=== PATIENT | female | born 1925 | race Caucasian/White ===

== ENCOUNTER 2016-10-19 14:39 | Inpatient (IN) ==
[2016-10-19] MEDS ORDERED: ULTRAM PO PRN (18:06)
[2016-10-19 19:28] LABS: INR 3.01; PROTIME 33.9 Seconds (9.2-11.7)
[2016-10-19 19:31] LABS: CALCIUM 9.4 mg/dL (8.8-10.2); POTASSIUM 4.7 mmol/L (3.5-5.1)
--- NOTE | 2016-10-19 19:36 | Diag Imaging Result Doc PS360 ---
EXAM: CHEST-2 VIEWS HISTORY: SOB TECHNIQUE: COMPARISON: 04/05/2014 FINDINGS: The heart is enlarged. There is a left-sided pacemaker. The lungs are well expanded. No pleural effusions. Mild central vascular prominence. No consolidation. IMPRESSION: Cardiomegaly with central vascular distention Electronically signed by Boubacar Son 10/19/2016 7:34 PM
[2016-10-19] MEDS: SODIUM CHLORIDE 0.9% INJ SCH (20:07)
[2016-10-19] MEDS: ZOSYN 3.375 GM in NS 50 ML IV SCH (20:07)
[2016-10-19] MEDS: PROTONIX IV SCH (20:07)
[2016-10-20] MEDS: ZOSYN 3.375 GM in NS 50 ML IV SCH ×4 (01:39→21:20)
--- NOTE | 2016-10-20 03:36 | HISTORY AND PHYSICAL ---
SUBJECTIVE: Complains of bilateral leg swelling, edema, ulcerations in the right leg outside with redness and swelling. HISTORY OF PRESENT ILLNESS: She is an 89-year-old, white female. Apparently was evaluated by asphalt raker in [place], Dr. Paul. She has a history of varicose veins with chronic venous stasis. Patient was on Coumadin. INR 3. She was given Demadex for the swelling. She was also placed, for the last 1 month, in Unna boot and wound care. Fails to improve. She has good pulses. Basically admitted to the hospital with ulcerations on the lateral side, first-degree, along with cellulitis. Since she failed with outpatient medical management, needs IV antibiotics and wound care consult. As a result, a hospital admission was warranted. 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 PAST SURGICAL HISTORY: Permanent pacemaker, gallbladder surgery, right hip replacement. MEDICATIONS: Allopurinol 100 daily, Coumadin 4 mg daily, vitamin D 5000 units daily, Demadex 100 mg and 50 mg as directed, Lipitor 10 mg daily, metoprolol 25 daily, Nexium 20 mg daily, Aldactone 25 two once daily, terazosin 2 mg daily. ALLERGIES: Statins and shellfish. SOCIAL HISTORY: Single. No children. Lives in [place]. No smoking. No alcohol. No drug abuse. Retired. FAMILY HISTORY: Father of lung cancer at 48. Mom at 49. HEALTH MAINTENANCE: Flu vaccine 2015, pneumococcal 2011, mammography 2011, colonoscopy by Dr. Edmonds. REVIEW OF SYSTEMS: HEENT: No headache. No vision problem. No earache. No sore throat. Neck: There is no goiter. No lymphadenopathy. No bruit. Cardiopulmonary: No chest pain, shortness of breath, PND, orthopnea. GI: No nausea, vomiting, abdominal pain. : No history of hesitancy, frequency, dysuria. Extremities: Swelling of feet of both legs. Right is worse than the left side. Ulcerations, redness on the right leg, mostly on the outside. No symptoms of claudications. Neurologic: No focal symptoms or weakness or seizures. PHYSICAL EXAMINATION: VITAL SIGNS: Low-grade fever. Vital signs are stable. Height of 5 feet 5 inches, 179 pounds. HEENT: Atraumatic, normocephalic. Pupils equal, reactive to light. TMs are normal. Nose and throat within normal limits. NECK: Supple. No lymphadenopathy. No goiter. CHEST: Bilateral air entry. HEART: Heart sounds are distant, irregular. ABDOMEN: Belly is soft, obese, nontender. Good bowel sounds. EXTREMITIES: There is 2+ pedal edema in both legs. Chronic venous stasis changes noted. NEUROLOGIC: No obvious neurological deficits. INVESTIGATIONS: PTT 33, INR 3. SMA 7: BUN 38, creatinine 1.8, A1c 6. Cardiac enzymes were normal. Chest x-ray, cardiomegaly with pacemaker. ASSESSMENT AND PLAN: 1. An 89-year-old, white female admitted to the hospital with cellulitis of the right leg associated with chronic venous stasis ulcer worsening. Plan is wound consult, intravenous Zosyn. 2. Atrial fibrillation, cardiomegaly, on Coumadin. Follow up on INR. 3. Reconcile home medicines. Discussed with the family. We will follow up. cc: Sage Lisa MD
[2016-10-20 04:38] LABS: ALLEN TEST YES; BE 5.8 mmoll (-3.0-3.0); BLOOD TYPE ARTERIAL; DRAW SITE R RADIAL; METHB 1.2 % (0.0-1.5); MODALITY ROOM AIR; O2(CT) 17.5 mL/dL (15.0-23.0); PCO2(98.6) 50 mmHg (35-45); PO2(98.6) 61 mmHg (60-100); SAMPLE BLOOD; SAO2 94.7 % (95.0-100.0); THB 13.6 g/dL (11.5-17.4); pH(98.6) 7.41 (7.35-7.45)
[2016-10-20 05:48] LABS: MANUAL DIFF NEEDED? NO
[2016-10-20 06:07] LABS: BASO% 0.5 % (0.0-0.8); EOS% 2.1 % (0.0-10.0); HEMATOCRIT 40.7 % (37.0-47.0); IMM GRAN# 0.02 X1000 (0.0-0.04); IMM GRAN% 0.2 % (0.0-0.5); LYMPH# 1.58 X1000 (1.2-3.4); LYMPH% 16.9 % (20.5-51.1); MCH 28.7 PG (27-31); MCHC 31.9 g/dL (33-37); MCV 89.8 FL (81-99); MONO# 1.33 X1000 (0.11-0.59); MONO% 14.2 % (1.7-9.3); MPV 12.5 FL (7.4-10.4); NEUT% 66.1 % (42.2-75.2); PLT 159 X1000 (130-400); RBC 4.53 XMIL (4.2-5.4)
[2016-10-20 06:16] LABS: INR 2.88; PROTIME 32.4 Seconds (9.2-11.7)
[2016-10-20 06:17] LABS: CALCIUM 8.9 mg/dL (8.8-10.2); POTASSIUM 4.1 mmol/L (3.5-5.1)
--- NOTE | 2016-10-20 07:13 | EKG Report ---
Test Performed on : 10/20/2016 06:50:05 AM Test Reason : cp Blood Pressure : / mmHG Vent. Rate : 114 BPM Atrial Rate : 228 BPM P-R Int : 000 ms QRS Dur : 086 ms QT Int : 332 ms P-R-T Axes : 000 -57 053 degrees QTc Int : 457 ms SInus with sinus arrhythmia. Left anterior fascicular block Inferior infarct , age undetermined Abnormal ECG When compared with ECG of 23-DEC-2011 06:17, Vent. rate has increased BY 40 BPM Confirmed by Tony Barney DO ([id number]) on 10/24/2016 12:16:11 PM
[2016-10-20] MEDS ORDERED: ULTRAM PO PRN (08:27)
--- NOTE | 2016-10-20 08:50 | PROGRESS NOTE ---
DATE: 10/20/2016 SUBJECTIVE: The patient is doing very well. Complains of headache. No focal symptoms. Right leg still swollen and red. Few impending ulcers on the lateral side. Rest of review of systems are normal. PHYSICAL EXAMINATION: Vital Signs: She is afebrile. Heart rate is 120. 186 pounds. HEENT: Within normal limits. Chest: Clear. Heart: Sounds are regular. Abdomen: Belly is soft, obese, nontender. Good bowel sounds. Extremities: 2+ edema. The right leg is more swollen with chronic venous stasis dermatitis changes noted. INVESTIGATIONS: CBC is normal. PT 32. INR 2.8. ABG: pH is 7.41, pCO2 of 50, pO2 of 61. SMA-7 is normal except BUN 34, creatinine 1.6. ProBNP 2100. Cardiac enzymes were normal. Chest x-ray: Cardiomegaly. EKG: Atrial flutter/atrial fibrillation. ASSESSMENT AND PLAN: 1. Chronic venous stasis dermatitis. Worsening on the right side with cellulitis and open sores, first-degree. Plan is wound consult, IV Zosyn. 2. Atrial fibrillation on Coumadin. INR is stable. We will restart warfarin in the morning. 3. History of gout. On Zyloprim. 4. Hyperlipidemia. On Lipitor. 5. Chronic congestive heart failure. Under the care of Dr. Petersen. On metoprolol, Aldactone, Demadex. Continue on present medical therapy. LEVEL OF DOCUMENTATION: 25 minutes. cc: Sage Lisa MD
[2016-10-20] MEDS ORDERED: NEXIUM PO SCH (09:00)
[2016-10-20] MEDS ORDERED: TOPROL XL PO SCH (09:00)
[2016-10-20] MEDS ORDERED: HYTRIN PO SCH (09:00)
[2016-10-20] MEDS: ZYLOPRIM PO SCH (09:36)
[2016-10-20] MEDS: ALDACTONE PO SCH ×2 (09:36→21:20)
[2016-10-20] MEDS: VITAMIN D PO SCH (09:36)
[2016-10-20] MEDS: PROTONIX IV SCH (18:53)
[2016-10-20] MEDS: SODIUM CHLORIDE 0.9% INJ SCH ×2 (18:53→21:08)
[2016-10-20] MEDS: LOPRESSOR PO SCH (21:20)
[2016-10-20] MEDS: HYTRIN PO SCH (21:20)
[2016-10-21] MEDS: ZOSYN 3.375 GM in NS 50 ML IV SCH ×4 (03:14→23:07)
[2016-10-21 06:27] LABS: INR 2.07
[2016-10-21 06:28] LABS: PROTIME 22.8 Seconds (9.2-11.7)
[2016-10-21] MEDS: ALDACTONE PO SCH ×2 (08:04→23:07)
[2016-10-21] MEDS: LIPITOR PO SCH (08:04)
[2016-10-21] MEDS: ZYLOPRIM PO SCH (08:05)
[2016-10-21] MEDS: LOPRESSOR PO SCH ×2 (08:05→23:07)
[2016-10-21] MEDS: DEMADEX PO SCH (08:05)
[2016-10-21] MEDS: VITAMIN D PO SCH (08:06)
--- NOTE | 2016-10-21 08:42 | PROGRESS NOTE ---
DATE: 10/21/2016 SUBJECTIVE: The patient was seen by wound care nurse. I applied Medihoney with dressing. Legs are less edematous and decreased redness. REVIEW OF SYSTEMS: None reported. OBJECTIVE: Vital Signs: On exam, vitals are stable. HEENT exam: Within normal limits. Chest: Clear. Heart: Sounds are regular. Abdomen: Belly is soft, nontender. Good bowel sounds. Extremities: Decreased swelling and redness. INVESTIGATIONS: PT 22, INR 2.0. ASSESSMENT AND PLAN: 1. Right leg cellulitis with open sores. Continue wound cultures on intravenous Zosyn. 2. Restart Coumadin tomorrow. 3. Continue present medical therapy. LEVEL OF DOCUMENTATION: 15 minutes. cc: Sage Lisa MD
[2016-10-21] MEDS: PROTONIX IV SCH (19:56)
[2016-10-21] MEDS: HYTRIN PO SCH (23:07)
[2016-10-22] MEDS: SODIUM CHLORIDE 0.9% INJ SCH ×3 (03:45→22:40)
[2016-10-22 06:36] LABS: INR 1.52; PROTIME 16.4 Seconds (9.2-11.7)
[2016-10-22] MEDS: ZOSYN 3.375 GM in NS 50 ML IV SCH ×4 (06:46→23:02)
--- NOTE | 2016-10-22 09:01 | PROGRESS NOTE ---
DATE: 10/22/2016 SUBJECTIVE: No chest pain. No shortness of breath. Right leg swelling is much improved, as well as redness. PHYSICAL EXAMINATION: Vital Signs: She is afebrile. Vitals are stable, 192 pounds. HEENT Examination: Within normal limits. Neck: Supple. Chest: Clear to auscultation. Heart: Heart sounds are irregular. Abdomen: Belly is soft. Extremities: Bilateral venous stasis changes in the right leg, slowly improving. There is cellulitis. LABORATORY DATA: PT is 16, INR 1.52. ASSESSMENT AND PLAN: 1. Right leg cellulitis, ulcers. Continue local wound care, intravenous Zosyn. 2. Paroxysmal atrial fibrillation and atrial flutter. INR is 1.5. Restart warfarin 4 mg today. 3. Chronic congestive heart failure. Continue on Demadex and metoprolol 200 at night, 150 in the morning, Aldactone. 4. Hyperlipidemia, on Lipitor. 5. Continue intravenous antibiotics. Will be discharged in the morning. LEVEL OF DOCUMENTATION: 15 minutes. cc: Sage Lisa MD
[2016-10-22] MEDS: VITAMIN D PO SCH (09:05)
[2016-10-22] MEDS: LOPRESSOR PO SCH ×2 (09:05→21:34)
[2016-10-22] MEDS: ZYLOPRIM PO SCH (09:05)
[2016-10-22] MEDS: ALDACTONE PO SCH ×2 (09:05→21:35)
[2016-10-22] MEDS: PROTONIX IV SCH ×2 (17:17→18:34)
[2016-10-22] MEDS ORDERED: COUMADIN PO SCH (21:00)
[2016-10-22] MEDS: HYTRIN PO SCH (21:35)
[2016-10-23] MEDS: ZOSYN 3.375 GM in NS 50 ML IV SCH (05:01)
[2016-10-23 07:56] VITALS: BP 180/46
[2016-10-23] MEDS ORDERED: PREVNAR 13 IM ONE (08:24)
[2016-10-23] MEDS: DEMADEX PO SCH (10:06)
[2016-10-23] MEDS: ALDACTONE PO SCH (10:06)
[2016-10-23] MEDS: VITAMIN D PO SCH (10:07)
[2016-10-23] MEDS: LIPITOR PO SCH (10:07)
[2016-10-23] MEDS: LOPRESSOR PO SCH (10:07)
[2016-10-23] MEDS: ZYLOPRIM PO SCH (10:08)
--- NOTE | 2016-10-25 18:00 | DISCHARGE SUMMARY ---
ADMISSION DATE: 10/19/2016 DISCHARGE DATE: 10/23/2016 DISCHARGING DIAGNOSIS: Right leg cellulitis with chronic venous stasis dermatitis and superficial ulcers on the right lateral leg. SECONDARY DIAGNOSES: 1. Chronic atrial fibrillation. 2. Stage 3 chronic kidney disease. Creatinine 1.8. 3. History of gout. 4. Hiatal hernia. 5. Hyperlipidemia. 6. Hypertension. 7. History of pancreatitis. BRIEF HISTORY: Please see the H and P that was done on 10/19/2016. In brief, she is an 89-year- old, white female, who was admitted to the hospital with swelling of feet and redness. The patient was treated by lobby concierge in [place]. She failed to improve with outpatient medical management for 1 week with the Keflex and Unna boot. The patient has been on Coumadin. HOSPITAL COURSE: She was started on IV Zosyn and wound care consult was obtained. She applied Medihoney and elevation, and she was much improved. LABS: During this admission as follows, at the time of discharge. CBC: White cell count 9.3, hematocrit 40, platelet count 159,000, PT 16, INR 1.5. ABG on room air pH is 7.41, pCO2 50, PO2 61, bicarb 29, sodium 140, potassium 4.7, chloride 101, BUN 38, creatinine 1.6, glucose 111, A1c 6.0. Cardiac enzymes are normal. ProBNP 2000. DISCHARGE INSTRUCTIONS: Pneumococcal vaccine 10/23/2016. Allopurinol 100 mg daily, Aldactone 25 p.o. b.i.d., potassium 10 mEq daily, Nexium 20 daily, warfarin 4 mg daily, Lipitor 10 every other day, Hytrin 2 mg daily, Demadex 50 mg every other day, tramadol 50 as needed, vitamin D 3000 units daily, metoprolol 150 in the morning, 200 at night, Levaquin 500 daily for 10 days. Continue local wound care with Medihoney gel covered with Mepilex as directed. Outpatient home health care. Follow up in my office next week for the Coumadin checkup. cc: MD BEN Palm
== END 2016-10-23 11:35 | disposition home health service (06) ==
LOC: DIRADM 14:39 → 4N 15:23
PROVIDERS: ADMIT Internal Medicine; ATTEND Internal Medicine